=== PATIENT | male | born 1985 | race American Indian/Alaskan Native ===

== ENCOUNTER 2017-04-26 20:31 | Emergency (ER) | payer BC, OTHER ==
[~2017-04-26] VITALS: Ht 185.4 cm; Wt 126.1 kg
[~2017-04-26 20:31] MED LIST: METFORMIN HCL850 MG PO; NORCO 10-325 T1 EACH PO; NORCO 5-325 TA1 EACH PO; TRAMADOL HCL50 MG PO
== END 2017-04-26 23:25 | disposition home or self-care (01) ==
LOC: ED 20:31
DX: E11.65 Type 2 diabetes mellitus with hyperglycemia (principal); Z90.89 Acquired absence of other organs; Z88.0 Allergy status to penicillin; Z88.5 Allergy status to narcotic agent; Z79.84 Long term (current) use of oral hypoglycemic drugs
CPT/HCPCS: 80053; 81001; 82010; 85025; 96361; 96374; 96375; 99284; J2405; J7030

== ENCOUNTER 2017-12-31 10:57 | Emergency (ER) | payer BC, OTHER ==
[~2017-12-31] VITALS: Ht 185.4 cm; Wt 126.1 kg
--- OUTSIDE RECORDS SUMMARY | ~2017-12-31 | XMS | Clinical Summary ---
Demographics + + + | Address | [address] | | | [place] [address] | + + + | Home Phone | | + + + | Preferred Language | Unknown | + + + | Marital Status | Single | + + + | Roman Catholic Affiliation | Unknown | + + + | Race | Unknown | + + + | Ethnic Group | Unknown | + + + Author + + + | Author | [facility] | | | and [place] | + + + | Organization | [facility] | | | and [...] | | | | | [place] [address] | | + + + + + Care Team Providers + +------+ + | Care Trainman Name | Role | Phone | + [...] Vaccine: Influenza | | | | | (Season Ended) | 8 | | | + + [...] +--------+ +---------+ | [employer] | HEALTH | [phone] | PPO | [phone] | | | | COMP | | | [phone] | | | | PPO | | | | | + +--------+ +--------+ +---------+ | HEALTH | IHS | [phone] | Indemn | | | | SERVICE [...] | | al/Fam | | 1984 | [phone] | [place] [address] | | | sander | | | [phone] Home: | | | | | | | | | | | | | | [phone] | | | | | | | [phone] | | + +--------+ +--------+ + +"
--- OUTSIDE RECORDS SUMMARY | ~2017-12-31 | XMS | Clinical Summary ---
Demographics + + + | Address | [address] | | | [place] [address] | + + + | Home Phone | | + + + | Preferred Language | Unknown | + + + | Marital Status | Single | + + + | Church Affiliation | Unknown | + + + | Race | Unknown | + + + | Ethnic Group | Unknown | + + + Author + + + | Author | [facility] | | | and [place] | + + + | Organization | [facility] | | | [...] | | | | | [place] [address] | | + + + + + Care Team Providers + +------+ + | Care Hospitalist Nocturnist Physician Name | Role | Phone | + [...] | | al/Fam | | 1984 | [phone] | [place] [address] | | | [place] | | | [phone] Home: | | | | | | | | | | | | | | [phone] | | | | | | | [phone] | | + +--------+ +--------+ + +"
[2017-12-31] MEDS ORDERED: AZITHROMYCIN250 MG PO (17:54)
[2017-12-31] MEDS ORDERED: PROVENTIL HFA6.7 GM INH (17:54)
[2017-12-31] MEDS ORDERED: ONDANSETRON ODT4 MG SL (17:54)
--- NOTE | 2017-12-31 19:49 | EKG ---
[facility] [address] [facility] [place], [place] [address] Signed Sinus tachycardia Otherwise normal ECG When compared with ECG of 26-SEP-2016 19:14, No significant change was found Confirmed by JUVENCIO RODRIGUEZ MD ([id number]) on 12/31/2017 7:49:40 PM Electronically Signed By: JUVENCIO RODRIGUEZ MD 12/31/17 1949 PATIENT NAME: LUPE ROSENTHAL Electrocardiogram DATE OF : 83 PHYSICIAN: JUVENCIO RODRIGUEZ MD REPORT #: [id number] REPORT IS CONFIDENTIAL AND NOT TO BE RELEASED WITHOUT AUTHORIZATION
== END 2017-12-31 18:27 | disposition home or self-care (01) ==
LOC: ED 10:57
DX: J18.9 Pneumonia, unspecified organism (principal); E11.9 Type 2 diabetes mellitus without complications; R11.2 Nausea with vomiting, unspecified; T50.905A Adverse effect of unspecified drugs, medicaments and biological substances, initial encounter; Z88.0 Allergy status to penicillin; Z88.5 Allergy status to narcotic agent
CPT/HCPCS: 71046; 80053; 84484; 85025; 93005; 93010; 96361; 96365; 96375; 99283; J0456; J1885; J2405; J7050; J7120

== ENCOUNTER 2018-05-13 16:10 | Emergency (ER) | payer OTHER, BC ==
[~2018-05-13] VITALS: Ht 185.4 cm; Wt 126.1 kg
--- OUTSIDE RECORDS SUMMARY | ~2018-05-13 | XMS | Clinical Summary ---
Demographics + + + | Address | [address] | | | [place] [address] | + + + | Home Phone | | + + + | Preferred Language | Unknown | + + + | Marital Status | Single | + + + | Amish Affiliation | Unknown | + + + | Race | Unknown | + + + | Ethnic Group | Unknown | + + + Author + + + | Author | [facility] | | | and [place] | + + + | Organization | [facility] | | | and [place] | + + + | Address | Unknown | + + + | Phone | Unavailable | + + + Support + + + + + | Name | Relationship | Address | Phone | + + + + + | Nivia Rosenthal | ECON | [address] | | | | | [place] [address] | | + + + + + Care Team Providers + +------+ + | Care Motorcycle Racer Name | Role | Phone | + +------+ + PP | Unavailable | + +------+ + Allergies Not on File Current Medications Not on file Active Problems Not on file Social History + +-------+ +--------+------+ | Tobacco Use | Types | Packs/Day | Years | Date | | | | | Used | | + +-------+ +--------+------+ | Never Assessed | | | | | + +-------+ +--------+------+ + + + | Sex Assigned at | Date Recorded | | | | + + + | Not on file | | + + + Plan of Treatment + + + + + | Health Maintenance | Due Date | Last Done | Comments | + + + + + | Vaccine: | | | | | Dtap/Tdap/Td (1 - | 3 | | | | Tdap) | | | | + + + + + | Vaccine: Influenza | | | | | (#1) | 8 | | | + + + + + Results Not on filefrom Last 3 Months Insurance + +--------+ +--------+ +---------+ | Payer | Benefi | Subscriber | Type | Phone | Address | | | t Plan | ID | | | | | | / | | | | | | | Group | | | | | + +--------+ +--------+ +---------+ | [employer] | HEALTH | [id number] | PPO | [phone] | | | | COMP | | | [phone] | | | | PPO | | | | | + +--------+ +--------+ +---------+ | [facility] | IHS | [id number] | Indemn | | | | SERVICE | YELLOW | | ity | | | | | [place] | | | | | + +--------+ +--------+ +---------+ + +--------+ +--------+ + + | Guarantor Name | Accoun | Relation to | Date | Phone | Billing Address | | | t Type | Patient | of | | | | | | | | | | + +--------+ +--------+ + + | ZACH ROSENTHAL | Person | Self [birth year] | Work: | [address] | | | al/Fam | | 1984 | [phone] | [place] [address] | | | [place] | | | [phone] Home: | | | | | | | | | | | | | | [phone] | | | | | | | [phone] | | + +--------+ +--------+ + +"
--- OUTSIDE RECORDS SUMMARY | ~2018-05-13 | XMS | Clinical Summary ---
Demographics + + + | Address | [address] | | | [place] [address] | + + + | Home Phone | | + + + | Preferred Language | Unknown | + + + | Marital Status | Single | + + + | Restorationist Affiliation | Unknown | + + + | Race | Unknown | + + + | Ethnic Group | Unknown | + + + Author + + + | Author | [facility] | | | and [place] | + + + | Organization | [facility] | | [...] | | | | | [place] [address] | | + + + + + Care Team Providers + +------+ + | Care Television Production Technician Name | Role | Phone | + [...] +--------+ +---------+ | [employer] | HEALTH | [id number] | PPO | [phone] | | | | COMP | | | [phone] | | | | PPO | | | | | + +--------+ +--------+ +---------+ | [facility] | IHS | [id number] | Indemn | | | | SERVICE [...] | 1984 | [phone] | [place] [address] | | | [place] | | | [phone]: | | | | | | | | | | | | | | [phone] | | | | | | | [address] | | + +--------+ +--------+ + +"
[~2018-05-13 16:10] MED LIST changes: +AZITHROMYCIN250 MG PO; +ONDANSETRON ODT4 MG SL; +PROVENTIL HFA6.7 GM INH
== END 2018-05-13 19:00 | disposition home or self-care (01) ==
LOC: ED 16:10
DX: S60.221A Contusion of right hand, initial encounter (principal); W22.8XXA Striking against or struck by other objects, initial encounter; Y99.0 Civilian activity done for income or pay; E11.9 Type 2 diabetes mellitus without complications; Z88.0 Allergy status to penicillin; Z88.5 Allergy status to narcotic agent; Z79.84 Long term (current) use of oral hypoglycemic drugs
CPT/HCPCS: 73130; 99283

== ENCOUNTER 2019-05-20 00:12 | Emergency (ER) | payer BC, OTHER ==
[~2019-05-20] VITALS: Ht 185.4 cm; Wt 119.3 kg
[2019-05-20] MEDS ORDERED: NORCO 5-325 TA1 EACH PO (00:22)
[2019-05-20] MEDS ORDERED: ZOFRAN4 MG PO (02:32)
== END 2019-05-20 02:45 | disposition home or self-care (01) ==
LOC: ED 00:12
DX: K29.00 Acute gastritis without bleeding (principal); Z88.0 Allergy status to penicillin; Z88.5 Allergy status to narcotic agent
CPT/HCPCS: 80053; 81001; 83690; 85025; 96361; 96374; 99284-25; J2405; J7030

== ENCOUNTER 2021-12-04 20:00 | Emergency (ER) | payer OTHER, BC ==
[~2021-12-04] VITALS: Ht 185.4 cm; Wt 156.5 kg
[~2021-12-04 20:00] MED LIST changes: +ZOFRAN4 MG PO
[2021-12-04] MEDS ORDERED: METFORMIN HCL500 M1 PO (20:20)
[2021-12-04] MEDS ORDERED: IBUPROFEN IB200 MG PO (20:22)
== END 2021-12-04 22:02 | disposition home or self-care (01) ==
LOC: ED 20:00
DX: Z77.098 Contact with and (suspected) exposure to other hazardous, chiefly nonmedicinal, chemicals (principal); Z88.0 Allergy status to penicillin; Z88.5 Allergy status to narcotic agent; Z79.84 Long term (current) use of oral hypoglycemic drugs
CPT/HCPCS: 71045; 99284-25